=== PATIENT | female | born 1995 | race Caucasian/White ===

== ENCOUNTER 2022-07-05 16:27 | Emergency (ER) | payer MEDICAID ==
[~2022-07-05] VITALS: Ht 154.9 cm; Wt 84.8 kg
[2022-07-05 16:56] VITALS: BP 108/49
[2022-07-05] MEDS ORDERED: ONDANSETRON 4 MG ODT PO ONE (17:30)
[2022-07-05] MEDS ORDERED: FAMOTIDINE 20 MG TAB PO ONE (17:30)
[2022-07-05 18:07] LABS: BASOPHILS % (AUTO) 0.2 % (0.0-2.0); EOSINOPHILS % (AUTO) 0.3 % (0.0-4.0); HEMATOCRIT 40.6 % (36-48); HEMOGLOBIN 13.5 g/dL (12.0-16.0); LYMPHOCYTES # (AUTO) 1.7 K/uL (2.5-16.5); LYMPHOCYTES % (AUTO) 10.8 % (20.5-51.1); MEAN CORPUSCULAR HEMOGLOBIN 28 pg (27-31); MEAN CORPUSCULAR HGB CONC 33 g/dL (33-37); MEAN CORPUSCULAR VOLUME 84.7 fL (80-94); MONOCYTES # (AUTO) 0.8 K/uL (0.8-1.0); MONOCYTES % (AUTO) 5.1 % (1.7-9.3); NEUTROPHILS # (AUTO) 13.1 K/uL (1.8-7.7); NEUTROPHILS % (AUTO) 83.6 % (42.2-75.2); PLATELET COUNT (AUTO) 357 K/uL (140-450); RED BLOOD CELL COUNT(AUTO) 4.79 MIL/uL (4.20-5.40); RED CELL DISTRIBUTION WIDTH 13.2 % (11.6-13.7); WHITE BLOOD COUNT (AUTO) 15.7 K/uL (4.8-10.8)
[2022-07-05 18:31] LABS: ALBUMIN 3.4 g/dL (3.4-5.0); ANION GAP 12.9 (8-16); ASPARTATE AMINOTRANSFERASE 41 U/L (15-37); CARBON DIOXIDE 27.2 mmol/L (21-32); CHLORIDE 104 mmol/L (98-107); CREATININE 0.5 mg/dL (0.6-1.3); GFR ARICAN-AMERICAN 189 mL/min (>90); GLUCOSE 110 mg/dL (74-106); POTASSIUM 4.1 mmol/L (3.5-5.1); SODIUM SERUM 140 mmol/L (136-145); TOTAL BILIRUBIN 0.3 mg/dL (0.0-1.0); UREA NITROGEN, BLOOD 10 mg/dL (7-18)
[2022-07-05] MEDS ORDERED: FAMO-90 PO (19:18)
[2022-07-05 19:21] VITALS: BP 108/49
--- NOTE | 2022-07-05 19:21 | NUR ---
d/c by TAYE saucedo. prescribed pepcid.
== END 2022-07-05 19:21 | disposition home or self-care (01) ==
LOC: MED 16:27
DX: K29.70 Gastritis, unspecified, without bleeding (principal)
CPT/HCPCS: 36415; 71045; 80053; 81025; 83690; 84484; 85025; 93005; 99285; Q0092; Q0162

== ENCOUNTER 2022-10-26 18:05 | Inpatient (IN) | payer MEDICAID ==
[~2022-10-26] VITALS: Ht 157.5 cm; Wt 85.7 kg
[~2022-10-26 18:05] MED LIST: FAMO-90 PO
[2022-10-26 18:56] VITALS: BP 115/56
[2022-10-26] MEDS ORDERED: FAMOTIDINE 20 MG TAB PO ONE (20:00)
[2022-10-26] MEDS ORDERED: ALUMINUM HYD/MAG/SIMETHICONE 30 ML UDC PO ONE (20:00)
[2022-10-26] MEDS ORDERED: ONDANSETRON 4 MG ODT PO ONE (20:00)
--- NOTE | 2022-10-26 20:00 | NUR ---
ABD PAIN WITH N/V STARTED TODAY WHILE EATING SOUP FROM HOME AROUND 1600
[2022-10-26 20:40] LABS: BASOPHILS # (AUTO) 0.1 K/uL (0.00-0.22); BASOPHILS % (AUTO) 0.4 % (0.0-2.0); EOSINOPHILS % (AUTO) 0.2 % (0.0-4.0); HEMATOCRIT 40.7 % (36-48); HEMOGLOBIN 13.7 g/dL (12.0-16.0); LYMPHOCYTES # (AUTO) 2.1 K/uL (2.5-16.5); LYMPHOCYTES % (AUTO) 11.7 % (20.5-51.1); MEAN CORPUSCULAR HEMOGLOBIN 29 pg (27-31); MEAN CORPUSCULAR HGB CONC 34 g/dL (33-37); MEAN CORPUSCULAR VOLUME 85.5 fL (80-94); MONOCYTES # (AUTO) 0.7 K/uL (0.8-1.0); MONOCYTES % (AUTO) 3.8 % (1.7-9.3); NEUTROPHILS # (AUTO) 15.2 K/uL (1.8-7.7); NEUTROPHILS % (AUTO) 83.9 % (42.2-75.2); PLATELET COUNT (AUTO) 380 K/uL (140-450); RED BLOOD CELL COUNT(AUTO) 4.76 MIL/uL (4.20-5.40); RED CELL DISTRIBUTION WIDTH 14.1 % (11.6-13.7); WHITE BLOOD COUNT (AUTO) 18.2 K/uL (4.8-10.8)
[2022-10-26 20:45] LABS: APPEARANCE,URINE CLEAR (CLEAR); BILIRUBIN,URINE NEGATIVE (NEGATIVE); BLOOD, URINE NEGATIVE (NEGATIVE); COLOR,URINE YELLOW (YELLOW); LEUKOCYTE ESTERASE ,URINE NEGATIVE (NEGATIVE); NITRITE, URINE NEGATIVE (NEGATIVE); PH,URINE 6.5 (5.0-9.0); UGLUCOSE NEGATIVE (NEGATIVE)
[2022-10-26 20:58] LABS: ALBUMIN 3.9 g/dL (3.4-5.0); ANION GAP 12.4 (8-16); CARBON DIOXIDE 29.1 mmol/L (21-32); CREATININE 0.6 mg/dL (0.6-1.3); POTASSIUM 4.5 mmol/L (3.5-5.1); TOTAL BILIRUBIN 0.4 mg/dL (0.0-1.0)
[2022-10-26] MEDS ORDERED: NACL 0.9% 1,000 ML IV SCH (23:35)
[2022-10-26] MEDS ORDERED: metroNIDAZOLE 500 MG/NS PREMIX 100 ML IV ONE (23:35)
[2022-10-26] MEDS ORDERED: cefTRIAXone 1,000 MG VIAL ONE (23:42)
[2022-10-27] VITALS (7 sets, daily range): BP systolic 90–111; BP diastolic 50–67
--- NOTE | 2022-10-27 | NUR ---
Pt is getting some fluids and antiabiotic.
[2022-10-27] MEDS ORDERED: MORPHINE SULFATE 4 MG/ML SYR IVP PRN (00:50)
[2022-10-27] MEDS ORDERED: MAGNESIUM OXIDE 400 MG TAB PO PRN (00:50)
[2022-10-27] MEDS ORDERED: POTASSIUM CHLORIDE 10 MEQ TABER PO PRN (00:50)
[2022-10-27] MEDS ORDERED: ACETAMINOPHEN 325 MG TAB PO PRN (00:50)
[2022-10-27] MEDS ORDERED: MAG SULF 2000 MG/WATER PREMIX 50 ML IV PRN (00:50)
[2022-10-27] MEDS ORDERED: KCL 20 MEQ IN 100 mL PREMIX 200 ML IV PRN (00:50)
--- NOTE | 2022-10-27 00:52 | NUR ---
COVID SWAB COLLECTED AND SENT TO LAB
[2022-10-27 01:23] LABS: PROTHROMBIN TIME 9.9 secs (10.8-13.4)
--- NOTE | 2022-10-27 02:55 | NUR ---
RECEIVED REPORT FROM ER NURSE FIOR FOR CONTINUITY OF CARE. PATIENT IS A&O X4. PATIENT IS ON ROOM AIR, BREATHING IS NORMAL WITH SYMMETRICAL RISE AND FALL OF CHEST. PATIENT'S IV IS A 20G RAC; NO FLUIDS RUNNING AT THIS TIME. PATIENT IS CURRENTLY NPO EXCEPT MEDS. PATIENT IS LYING SEMI-FOWLERS IN BED. BED IS IN LOWEST POSITION, WHEELS LOCKED, CALL LIGHT IN PLACE. WILL CONTINUE TO OBSERVE PATIENT.
--- NOTE | 2022-10-27 03:20 | NUR ---
Patient will be admitted to care of lewis. Admited to [facility] Will go to room 104 Belongings list completed. Report to
--- NOTE | 2022-10-27 07:25 | NUR ---
ASSUMED CONTINUITY OF CARE. INITIAL ASSESSMENT DONE. KEEP COMFORTABLE ON BED. EXPLAINED DIAGNOSIS, PLAN OF CARE, DIET, PAIN MANAGEMENT TEACHING, USE OF CALL LIGHT/BED/TV/BATHROOM. VERBALIZED UNDERSTANDING. CALL LIGHT WITHIN REACH.
--- NOTE | 2022-10-27 07:37 | NUR ---
ENDORSED TO DAY SHIFT NURSE DORIAN FOR CONTINUITY OF CARE. PATIENT IS STABLE.
--- NOTE | 2022-10-27 09:25 | NUR ---
PATIENT HAS BEEN SCREENED AND CATEGORIZED MODERATE NUTRITION RISK. PATIENT WILL BE SEEN WITHIN 3-5 DAYS OF ADMISSION. REVIEWED BY CLAUDIA WALDEN RD
[2022-10-27] MEDS: DEXT 5% /NACL 0.9% 1,000 ML IV SCH ×2 (11:08→23:55)
--- NOTE | 2022-10-27 11:30 | NUR ---
DR. DAILY CAME AND INFORMED OF PT. VS AT 0800 AND 1000. GAVE ORDER FOR NS BOLUS 1000 ML X1.
[2022-10-27] MEDS ORDERED: NACL 0.9% 1,000 ML IV SCH (11:40)
--- NOTE | 2022-10-27 12:08 | NUR ---
DR. DORSEY SPOKE TO PT. AT BEDSIDE AND EXPLAINED ABOUT PROCEDURE TO BE DONE TOMORROW 10/28/2022.
[2022-10-27] MEDS: metroNIDAZOLE 500 MG/NS PREMIX 100 ML IV SCH ×2 (13:00→20:35)
--- NOTE | 2022-10-27 15:46 | NUR ---
DC PLANNING ADMITTED A 27 YEAR OLD FEMALE PATIENT FOR ABDOMINAL PAIN,NAUSEA AND VOMITING .ABDOMEN /PELVIS CONTRAST SHOWS ACUTE CHOLECYSTITIS.GALLBLADDER US REVEALS ACUTE CHOLECYSTITIS.ON GLAGYL.FOR LAP CHOLECYSTECTOMY,POSSIBLE EXPLOR LAP IN AM.CM TO FOLLOW. Addendum: 10/29/22 at 1559 by WES FIELD CM DC PLANNING POST-OP DAY #1 POST LAP DAGOBERTO AND LYSIS OF ADHESION.WBC 21.3.STARTED ON CEFTRIAXONE AND FLAGYL.TOLERATING CLEAR LIQUIDS. CM TO FOLLOW.
--- NOTE | 2022-10-27 19:04 | NUR ---
REPORT GIVEN TO WALTER ARCHULETA FOR CONTINUITY OF CARE. IN STABLE CONDITION.
--- NOTE | 2022-10-27 19:30 | NUR ---
RECEIVED REPORT FROM DAY SHIFT NURSE DORIAN FOR CONTINUITY OF CARE. PATIENT IS A&O X4. PATIENT IS ON ROOM AIR, BREATHING IS NORMAL WITH SYMMETRICAL RISE AND FALL OF CHEST. IV IS A 20G RAC; RUNNING D5NS 75. PATIENT IS LYING IN HIGH-FOWLERS POSITION, VISITING WITH BOYFRIEND. BED IS IN LOWEST POSITION, WHEELS LOCKED, CALL LIGHT IN PLACE. WILL CONTINUE TO OBSERVE PATIENT.
--- NOTE | 2022-10-27 20:25 | NUR ---
RECEIVED CALL FROM DR. WALDEN IN REGARDS TO PATIENT'S SURGERY TOMORROW. DR. WALDEN ASKED ABOUT PATIENT'S TEST AND LABS. INFORMED HIM OF LABS AND NEGATIVE TEST. DR. WALDEN ORDERED A CBC AND BMP TO BE DONE IN THE AM. PUT ORDER IN FOR BMP AT 0600 TOMORROW; ORDER FOR CBC ALREADY EXISTED FOR TOMORROW AT 0600.
[2022-10-28] VITALS (9 sets, daily range): BP systolic 94–132; BP diastolic 56–82
--- NOTE | 2022-10-28 00:15 | NUR ---
WENT INTO PATIENT'S ROOM AT 0000 AND MADE SURE ALL FOOD AND DRINKS WERE REMOVED. PATIENT WOKE UP AND I REMINDED HER THAT SHE COULD NOT HAVE ANYMORE FOOD OR DRINKS DUE TO HER PROCEDURE IN THE MORNING. SHE VERBALIZED UNDERSTANDING AND WENT BACK TO SLEEP. WILL CONTINUE TO OBSERVE PATIENT.
[2022-10-28] MEDS: metroNIDAZOLE 500 MG/NS PREMIX 100 ML IV SCH ×3 (04:03→22:00)
[2022-10-28 05:28] LABS: BASOPHILS % (AUTO) 0.2 % (0.0-2.0); EOSINOPHILS # (AUTO) 0.1 K/uL (0-0.4); EOSINOPHILS % (AUTO) 1.3 % (0.0-4.0); HEMATOCRIT 34.9 % (36-48); HEMOGLOBIN 11.8 g/dL (12.0-16.0); LYMPHOCYTES # (AUTO) 3.5 K/uL (2.5-16.5); LYMPHOCYTES % (AUTO) 32.3 % (20.5-51.1); MEAN CORPUSCULAR HEMOGLOBIN 29 pg (27-31); MEAN CORPUSCULAR HGB CONC 34 g/dL (33-37); MEAN CORPUSCULAR VOLUME 86.4 fL (80-94); MONOCYTES # (AUTO) 0.8 K/uL (0.8-1.0); MONOCYTES % (AUTO) 7.9 % (1.7-9.3); NEUTROPHILS # (AUTO) 6.2 K/uL (1.8-7.7); NEUTROPHILS % (AUTO) 58.3 % (42.2-75.2); PLATELET COUNT (AUTO) 320 K/uL (140-450); RED BLOOD CELL COUNT(AUTO) 4.03 MIL/uL (4.20-5.40); RED CELL DISTRIBUTION WIDTH 14.3 % (11.6-13.7); WHITE BLOOD COUNT (AUTO) 10.7 K/uL (4.8-10.8)
--- NOTE | 2022-10-28 05:53 | NUR ---
PATIENT PREOP CHECKLIST WAS DONE. PATIENT HAS SLEPT THROUGHOUT THE NIGHT. BREATHING IS NORMAL WITH SYMMETRICAL RISE AND FALL OF CHEST. WILL CONTINUE TO OBSERVE PATIENT.
[2022-10-28 06:01] LABS: ANION GAP 13.2 (8-16); CARBON DIOXIDE 26.7 mmol/L (21-32); CREATININE 0.6 mg/dL (0.6-1.3); MAGNESIUM 1.8 mg/dL (1.8-2.4); POTASSIUM 3.9 mmol/L (3.5-5.1); TOTAL BILIRUBIN 0.3 mg/dL (0.0-1.0)
--- NOTE | 2022-10-28 07:03 | NUR ---
Patient's Plan of Care was discussed and reviewed with SUPERVISOR BILLPOSTING: []mirna gallo
--- NOTE | 2022-10-28 07:15 | NUR ---
ASSUMED CONTINUITY OF CARE. INITIAL ASSESSMENT DONE. KEEP COMFORTABLE ON BED. CALL LIGHT WITHIN REACH.
--- NOTE | 2022-10-28 07:32 | NUR ---
ENDORSE TO DAY SHIFT NURSE DORIAN FOR CONTINUITY OF CARE. PATIENT IS STABLE.
--- NOTE | 2022-10-28 09:35 | NUR ---
WENT TO OR VIA [facility] FOR PROCEDURE. INFORMED OR NURSE ANSON -RN THAT PT. BP AT 0800 WAS 94/56.
[2022-10-28] MEDS ORDERED: LIDOCAINE 1% 500 MG/50 ML VIAL ONE (09:47)
[2022-10-28] MEDS ORDERED: BUPIVACAINE-MPF/EPI 0.25% 30 ML VIAL INJ ONE ×2 (09:47→09:48)
[2022-10-28] MEDS ORDERED: ROCURONIUM 50 MG/5 ML VIAL IV ONE ×3 (10:00→11:06)
[2022-10-28] MEDS ORDERED: ONDANSETRON 4 MG/2 ML VIAL ONE ×2 (10:00→11:07)
[2022-10-28] MEDS ORDERED: GLYCOPYRROLATE 0.2 MG/ML VIAL ONE ×6 (10:00→12:16)
[2022-10-28] MEDS ORDERED: KETOROLAC 30 MG/ML VIAL ONE ×2 (10:00→11:07)
[2022-10-28] MEDS ORDERED: NEOSTIGMINE 1:1000 10 MG/10 ML VIAL ONE ×2 (10:00→12:16)
[2022-10-28] MEDS ORDERED: SEVOFLURANE 250 ML BTL INH ONE (10:00)
[2022-10-28] MEDS ORDERED: fentaNYL citrate 0.05 MG/ML - 50mL vial IV ONE (10:00)
[2022-10-28] MEDS ORDERED: fentaNYL citrate 0.05 MG/ML VIAL ONE (10:21)
[2022-10-28] MEDS ORDERED: PROPOFOL 200 MG/20 ML VIAL IV ONE (10:37)
--- NOTE | 2022-10-28 12:00 | NUR ---
DC PLANNING SW ATTEMPTED TO MEET PT AT BEDSIDE TO COMPLETE ASSESSMENT, HOWEVER, PT NOT IN ROOM. SW TO FOLLOW
[2022-10-28] MEDS ORDERED: LABETALOL 20 MG/4 ML VIAL IVP PRN (12:39)
[2022-10-28] MEDS ORDERED: METOCLOPRAMIDE 10 MG/2 ML INJ VIAL IVP PRN (12:39)
[2022-10-28] MEDS ORDERED: hydrALAZINE 20 MG/ML VIAL IVP PRN (12:39)
[2022-10-28] MEDS: HYDROmorphone 1 MG/ML AMP IVP PRN ×4 (12:50→13:20)
[2022-10-28] MEDS ORDERED: HYDROmorphone PFS 2 MG/ML SYR ONE (12:58)
--- NOTE | 2022-10-28 13:35 | NUR ---
BACK FROM OR VIA GURNEY. PT. SLEEPING AT THIS TIME BUT EASILY AROUSABLE. KEEP COMFORTABLE ON BED. PT. BROTHER -PATRICIA ON BEDSIDE. WILL MONITOR.
[2022-10-28] MEDS: MIDODRINE 5 MG TAB PO SCH ×2 (14:17→19:00)
--- NOTE | 2022-10-28 15:05 | NUR ---
WENT TO BATHROOM. TOLERATED WELL. C/O ABD PAIN 09/04. NO C/O N/V. CONTINUE MONITORING.
[2022-10-28] MEDS: DEXT 5% /NACL 0.9% 1,000 ML IV SCH (15:08)
[2022-10-28] MEDS: HYDROcodone/APAP 5/325 MG 1 TAB TAB PO PRN (17:42)
[2022-10-28] MEDS: ONDANSETRON 4 MG/2 ML VIAL IVP PRN (18:43)
--- NOTE | 2022-10-28 19:20 | NUR ---
BEDSIDE REPORT GIVEN TO DELFINO ARCHULETA. IVF INFUSING WELL. IN STABLE CONDITION.
--- NOTE | 2022-10-28 21:29 | NUR ---
C/O PAIN - SHE SAID THE [employer] DOES NOT WORKS . SHE RATED THE PAIN 8 / 10 , BP 122/70 , RR 20 02 SAT 100 % HR 88 - WILL MEDICATE
[2022-10-28] MEDS: MORPHINE SULFATE 2 MG/ML SYR IVP PRN (21:30)
--- NOTE | 2022-10-28 21:59 | NUR ---
ROUNDS , PT SAID SHE WORRYING PAIN WILL COME BACK - EDUCATES THE PT SHE JUST GOT THE PAIN MEDICINE , AND WILL WAIT THE MEDICINE TO BE LESSEN THE PAIN , IF DOES NOT LESS THE PAIN I WILL GIVE HER ANOTHER FORM PAIN MED ( [facility] ) OR WILL REFER HER TO MD . PER PT [facility] DOES NOT WORK TO HER . WILL RE ASSESS THE PAIN . CALL LIGHT WITHIN REACH .
--- NOTE | 2022-10-28 23:00 | NUR ---
ROUNDS , SLEEPING , WILL CONT. TO MONITOR , CALL LIGT WITHIN REACH .
--- NOTE | 2022-10-29 01:00 | NUR ---
C/O NAUSEA - WILL MEDICATE , WILL CONT. TO MONITOR .
[2022-10-29] MEDS: ONDANSETRON 4 MG/2 ML VIAL IVP PRN ×2 (01:02→14:54)
[2022-10-29] MEDS ORDERED: cefTRIAXone 1,000 MG VIAL ONE (01:56)
--- NOTE | 2022-10-29 02:00 | NUR ---
C/O PAIN SHE RATED 9/10 , BP 135/75 , HR 85 , RR 20 , O2 SAT 98 % , WILL MEDICATE
[2022-10-29] MEDS: MORPHINE SULFATE 2 MG/ML SYR IVP PRN ×4 (02:04→20:21)
[2022-10-29] MEDS: DEXT 5% /NACL 0.9% 1,000 ML IV SCH ×2 (02:35→15:55)
--- NOTE | 2022-10-29 05:00 | NUR ---
SLEEPING , WILL CONT. TO MONITOR , CALL LIGHT WITHIN REACH .
[2022-10-29] MEDS: metroNIDAZOLE 500 MG/NS PREMIX 100 ML IV SCH ×3 (05:42→20:20)
--- NOTE | 2022-10-29 06:00 | NUR ---
ROUNDS , BP 128/81 , HR 84 , RR 20 , O2 SAT 99 % , WILL CONT. TO MONITOR
[2022-10-29] MEDS: MIDODRINE 5 MG TAB PO SCH ×3 (07:00→19:05)
[2022-10-29 07:04] LABS: BASOPHILS % (AUTO) 0.1 % (0.0-2.0); HEMATOCRIT 38.1 % (36-48); HEMOGLOBIN 12.7 g/dL (12.0-16.0); LYMPHOCYTES # (AUTO) 1.6 K/uL (2.5-16.5); LYMPHOCYTES % (AUTO) 7.4 % (20.5-51.1); MEAN CORPUSCULAR HEMOGLOBIN 29 pg (27-31); MEAN CORPUSCULAR HGB CONC 33 g/dL (33-37); MEAN CORPUSCULAR VOLUME 85.4 fL (80-94); MONOCYTES # (AUTO) 1.2 K/uL (0.8-1.0); MONOCYTES % (AUTO) 5.5 % (1.7-9.3); NEUTROPHILS # (AUTO) 18.5 K/uL (1.8-7.7); PLATELET COUNT (AUTO) 357 K/uL (140-450); RED BLOOD CELL COUNT(AUTO) 4.46 MIL/uL (4.20-5.40); RED CELL DISTRIBUTION WIDTH 14.1 % (11.6-13.7); WHITE BLOOD COUNT (AUTO) 21.3 K/uL (4.8-10.8)
--- NOTE | 2022-10-29 07:10 | NUR ---
ENDORSED PT . FOR CONT. OF CARE .
--- NOTE | 2022-10-29 07:11 | NUR ---
RECEIVED REPORT FROM NIGHTSHIFT NURSE. PT IS AWAKE IN BED, STABLE, AOX4, ON RM AIR, IV TO RIGHT AC 20G CLEAN AND INTACT. D5NS RUNNING. PT REPORTS PAIN 8/10 IN ABDOMEN, RADIATING TO CHEST. PAIN ASSESSMENT DONE, NONPHARM INTERVENTIONS INEFFECTIVE. WILL ADMINISTER PRN PAIN MEDICATION. BED IN LOWEST POSITION, 2 SIDE RAILS UP, REORIENTED PT TO CALL LIGHT. WILL CONTINUE WITH CARE.
[2022-10-29 08:00] VITALS: BP 132/78
[2022-10-29 08:59] LABS: ALBUMIN 3.2 g/dL (3.4-5.0); ANION GAP 14.9 (8-16); CREATININE 0.4 mg/dL (0.6-1.3); MAGNESIUM 1.8 mg/dL (1.8-2.4); TOTAL BILIRUBIN 0.4 mg/dL (0.0-1.0)
[2022-10-29 09:06] LABS: POTASSIUM 2.9 mmol/L (3.5-5.1)
--- NOTE | 2022-10-29 09:20 | NUR ---
PT POTASSIUM LOW (2.9). PROVIDED K-RIDER. PT STABLE, TOLERATING PRN MEDICATION WELL. WILL CONTINUE WITH CARE.
--- NOTE | 2022-10-29 11:00 | NUR ---
DC PLANNING ASSESSMENT COMPLETE PLEASE REFER TO ASSESSMENT FOR ADDITIONAL DETAILS PT REPORTS DC PLAN IS TO RETURN HOME WITH PARTNER PROVIDING TRANSPORTATION, WHEN MEDICALLY STABLE. Addendum: 10/30/22 at 1400 by Flavia CHACON Amended: Links added.
[2022-10-29 13:11] LABS: BASOPHILS # (AUTO) 0.1 K/uL (0.00-0.22); BASOPHILS % (AUTO) 0.3 % (0.0-2.0); EOSINOPHILS % (AUTO) 0.1 % (0.0-4.0); HEMATOCRIT 38.3 % (36-48); HEMOGLOBIN 13.1 g/dL (12.0-16.0); LYMPHOCYTES # (AUTO) 1.9 K/uL (2.5-16.5); LYMPHOCYTES % (AUTO) 8.7 % (20.5-51.1); MEAN CORPUSCULAR HEMOGLOBIN 29 pg (27-31); MEAN CORPUSCULAR HGB CONC 34 g/dL (33-37); MEAN CORPUSCULAR VOLUME 86.1 fL (80-94); MONOCYTES # (AUTO) 1.4 K/uL (0.8-1.0); MONOCYTES % (AUTO) 6.4 % (1.7-9.3); NEUTROPHILS # (AUTO) 18.3 K/uL (1.8-7.7); NEUTROPHILS % (AUTO) 84.5 % (42.2-75.2); PLATELET COUNT (AUTO) 374 K/uL (140-450); RED BLOOD CELL COUNT(AUTO) 4.45 MIL/uL (4.20-5.40); RED CELL DISTRIBUTION WIDTH 13.9 % (11.6-13.7); WHITE BLOOD COUNT (AUTO) 21.7 K/uL (4.8-10.8)
[2022-10-29 16:00] VITALS: BP 111/67
--- NOTE | 2022-10-29 19:10 | NUR ---
ENDORSED PT TO ROLLOFF TRUCK DRIVER NURSE FOR CONTINUITY OF CARE. PT IS STABLE, AWAKE IN BED WITH FAMILY AT BEDSIDE. PT IS ATTEMPTING TO EAT, NIGHT NURSE WILL ASSESS PT TOLERATING FOOD. NO FURTHER NEEDS ARE TO BE MET AT THIS TIME.
--- NOTE | 2022-10-29 19:15 | NUR ---
RECEIVED REPORT FROM DAY SHIFT RN FOR CONTINUITY OF CARE. PT IS CURRENTLY RESTING IN BED. FAMILY BY BEDSIDE. PT IS RUNNING D5 NS 75 CC/HR. PT HAS RIGHT AC 20 GAUGE. PT NOT IN ANY DISTRESS. ON RA. WILL CONTINUE TO MONITOR.
--- NOTE | 2022-10-29 23:40 | NUR ---
SCHEDULE MEDICATION GIVEN. PT REPORT BACK PAIN 03/04. PT IS STILL NOT DUE FOR PAIN MEDICATION AND WILL BE GIVEN ONCE DUE. VITAL ARE STABLE.
[2022-10-30] VITALS: BP 115/78
[2022-10-30] MEDS: MORPHINE SULFATE 2 MG/ML SYR IVP PRN ×2 (00:35→05:12)
[2022-10-30] MEDS: metroNIDAZOLE 500 MG/NS PREMIX 100 ML IV SCH ×2 (04:12→13:27)
--- NOTE | 2022-10-30 04:12 | NUR ---
SCHEDULE MEDICATION GIVEN. NO ADVERSE REACTION NOTED. PT NOT IN ANY DISTRESS.
[2022-10-30] MEDS: DEXT 5% /NACL 0.9% 1,000 ML IV SCH ×2 (05:15→08:55)
[2022-10-30] MEDS: MIDODRINE 5 MG TAB PO SCH ×2 (06:50→13:00)
--- NOTE | 2022-10-30 07:13 | NUR ---
ENDORSED PT TO DAY SHIFT RN FOR CONTINUITY OF CARE. PT IS STABLE.
--- NOTE | 2022-10-30 07:14 | NUR ---
RECEIVED PT FROM BRANCH OR DEPARTMENT CHIEF LIBRARIAN NURSE FOR CONTINUITY OF CARE. PT IN BED SLEEPING. VISIBLE CHEST RISE AND FALL. RESPIRATIONS EVEN AND UNLABORED ON RA. NO DISTRESS NOTED. IV ON R AC 20G INFUSING D5NS@75CC. SKIN WARM AND DRY. CALL LIGHT WITHIN REACH. ALL SAFETY PRECAUTIONS IN PLACE.
[2022-10-30 07:37] LABS: BASOPHILS % (AUTO) 0.2 % (0.0-2.0); EOSINOPHILS % (AUTO) 0.1 % (0.0-4.0); HEMATOCRIT 36.4 % (36-48); HEMOGLOBIN 12.3 g/dL (12.0-16.0); LYMPHOCYTES # (AUTO) 2.4 K/uL (2.5-16.5); MEAN CORPUSCULAR HEMOGLOBIN 29 pg (27-31); MEAN CORPUSCULAR HGB CONC 34 g/dL (33-37); MEAN CORPUSCULAR VOLUME 85.7 fL (80-94); MONOCYTES # (AUTO) 1.5 K/uL (0.8-1.0); MONOCYTES % (AUTO) 8.2 % (1.7-9.3); NEUTROPHILS # (AUTO) 14.6 K/uL (1.8-7.7); NEUTROPHILS % (AUTO) 78.5 % (42.2-75.2); PLATELET COUNT (AUTO) 362 K/uL (140-450); RED BLOOD CELL COUNT(AUTO) 4.25 MIL/uL (4.20-5.40); RED CELL DISTRIBUTION WIDTH 14.5 % (11.6-13.7); WHITE BLOOD COUNT (AUTO) 18.6 K/uL (4.8-10.8)
[2022-10-30 08:00] VITALS: BP 100/61
--- NOTE | 2022-10-30 08:00 | NUR ---
Patient's Plan of Care was discussed and reviewed with MANAGER STRATEGIC PARTNERSHIPS: PENNY
[2022-10-30 08:06] LABS: ANION GAP 11.4 (8-16); CARBON DIOXIDE 29.8 mmol/L (21-32); CREATININE 0.6 mg/dL (0.6-1.3); POTASSIUM 3.2 mmol/L (3.5-5.1); TOTAL BILIRUBIN 0.4 mg/dL (0.0-1.0)
--- NOTE | 2022-10-30 09:00 | NUR ---
ADMINISTERED PRN K DUR FOR POTASSIUM OF 3.2. PT TOLERATED WELL.
[2022-10-30] MEDS ORDERED: ONDA-188 PO (09:19)
[2022-10-30] MEDS ORDERED: ACET-9525 PO (09:19)
[2022-10-30] MEDS: HYDROcodone/APAP 5/325 MG 1 TAB TAB PO PRN (10:26)
--- NOTE | 2022-10-30 10:29 | NUR ---
PT C/O CONSTIPATION AND ABD PAIN 01/02. MEDICATED WITH [facility]. LEFT MESSAGE FOR DR DAILY REGARDING PT REQUEST FOR LAXATIVE. AWAITING RESPONSE.
[2022-10-30] MEDS ORDERED: DOCUSATE SOD/SENNA 50/8.6 MG 1 TAB PO SCH (12:00)
[2022-10-30 12:11] VITALS: BP 100/61
--- NOTE | 2022-10-30 12:32 | NUR ---
PT EATING LUNCH, STATES SHE IS PASSING GAS NOW AND TOLERATING DIET WELL.
--- NOTE | 2022-10-30 13:10 | NUR ---
SCHEDULED PROAMATINE NOT GIVEN PT BP 128/72.
--- NOTE | 2022-10-30 15:12 | NUR ---
DC PACKET DISCUSSED. NAME BAND AND IV REMOVED. PT FAMILY AT BEDSIDE. BELONGINGS GATHERED. PT TAKEN VIA WHEELCHAIR TO HOSPITAL FRONT LOBBY. PT IS STABLE. DC TO HOME.
[2022-10-31] MEDS ORDERED: DOCUSATE SOD/SENNA 50/8.6 MG 1 TAB PO SCH (09:00)
== END 2022-10-30 15:13 | disposition home or self-care (01) | DRG 710 ==
LOC: MED 18:05 → MTU 10-27 00:50 → MMU 10-27 05:00 → MTU 10-28 13:49
PROVIDERS: ADMIT Student in an Organized Health Care Education/Training Program; ATTEND Student in an Organized Health Care Education/Training Program
PROC: 0DNU4ZZ Release Omentum, Percutaneous Endoscopic Approach (ICD-10-PCS; 2022-10-28)
PROC: 0FT44ZZ Resection of Gallbladder, Percutaneous Endoscopic Approach (ICD-10-PCS; principal; 2022-10-28 10:00)
DX: A41.9 Sepsis, unspecified organism (principal); K80.00 Calculus of gallbladder with acute cholecystitis without obstruction; E86.1 Hypovolemia; Z20.822 Contact with and (suspected) exposure to COVID-19; E66.9 Obesity, unspecified; Z68.34 Body mass index [BMI] 34.0-34.9, adult; K21.9 Gastro-esophageal reflux disease without esophagitis
CPT/HCPCS: 36415; 76705; 80053; 81003; 83605; 83690; 83735; 85025; 85610; 85730; 86886; 86900; 86901; 87040; 87081; 88304; 96365; 96367; 99285; J0696; J1170; J1885; J2001; J2270; J2405; J2704; J2710; J3010; J3480; J3490; J7030; J7060; J7120; Q0092; Q0162; Q9967